=== PATIENT | female | born 1945 | race Caucasian/White ===

== ENCOUNTER 2024-11-29 17:38 | Emergency (ER) | payer MEDICARE, SELFPAY ==
[2024-11-29 17:38] VITALS: BMI 23.9
[2024-11-29 17:40] VITALS: BP 148/80
[2024-11-29 18:06] VITALS: BP 124/109
[2024-11-29 18:19] LABS: COVID-19 Antigen Negative (Negative)
[2024-11-29] MEDS: ZOFRAN 4 MG IV (18:49)
[2024-11-29] MEDS: NSS 1000 IV (18:49)
[2024-11-29 18:50] LABS: % Basophils 1.5 % (0-2); % Eosinophils 1.6 % (0-6); % Immature Granulocytes 0.3 % (0-0.5); % Lymphocytes 29.3 % (20.5-51.1); % Monocytes 9.8 % (1.7-9.3); % Neutrophils 57.5 % (42.2-75.2); Absolute Basophils 0.1 10^3/uL (0-0.2); Absolute Eosinophils 0.1 10^3/uL (0-0.7); Absolute Lymphocytes 2.1 10^3/uL (1.2-3.4); Absolute Monocytes 0.7 10^3/uL (0.1-0.6); Absolute Neutrophils 4.2 10^3/uL (1.4-6.5); Mean Corp Hgb Conc. 34.1 g/dL (33.0-37.0); Mean Corpuscular Volume 93.8 fL (81.0-99.0); Mean Platelet Volume 10.3 fL (7.4-10.4); Nucleated Red Blood Cells % 0 %; Platelet Count 286 10^3/uL (130-400); Red Blood Cell Count 4.69 10^6/uL (4.20-5.40); Red Cell Dist. Width 12.8 % (11.5-14.5); White Blood Cell Count 7.3 10^3/uL (4.8-10.8)
[2024-11-29 19:00] VITALS: BP 150/57
[2024-11-29 19:07] LABS: ALT (SGPT) 22 U/L (0-35); AST (SGOT) 35 U/L (14-36); Albumin 5.3 g/dl (3.5-5.0); Alkaline Phosphatase 77 U/L (38-126); Blood Urea Nitrogen 27 mg/dl (7-17); Calcium 9.2 mg/dl (8.4-10.2); Carbon Dioxide 17 mmol/L (22-30); Chloride 99 mmol/L (98-107); Estimated Creatinine Clearance 29 ml/min; Glucose 75 mg/dl (70-99); Sodium 132 mmol/L (135-145); Total Bilirubin 1.2 mg/dl (0.2-1.3); Total Protein 8.6 g/dl (6.3-8.2); eGFR 41.31
[2024-11-29 19:09] LABS: Lipase 165 U/L (23-300)
--- NOTE | 2024-11-29 19:45 | ED.GENMED ---
History of Present Illness
General
Chief Complaint: Abdominal Symptoms
Time Seen by Provider: 11/29/24 18:03
History of Present Illness
History of Present Illness:
79-year-old female with history of hypertension, chronic kidney disease, heart failure, chronic pain presenting to the emergency department for nausea, vomiting, diarrhea. Patient reports symptoms for the past 3 days. Reports chronic pain to the
left lower quadrant of the abdomen which she notes is from scar tissue. Denies any new pain to the abdomen. Does note that she has been having some left leg pain. Denies numbness or tingling to the leg. Pains above the knee. Denies any fever.
Denies known sick contacts. Does note that she was having some chest tightness. Denies difficulty breathing or cough. Denies additional acute medical complaints
Past History
Past History
ED Past Medical History: CHF, COPD, CVA, HTN, Hypercholesterolemia, Hypothyroidism, Other and Other
ED Past Surgical History: Appendectomy, Orthopedic and Tonsilectomy
Social History
Tobacco: Former smoker
Alcohol: None
Personal:
Living: with family
Employment: Retired
Family History
Family History: Other
Phy Exam
Physical Exam
Physical Exam:
General: Well-appearing, no clinical signs of dehydration, nontoxic and in no acute distress
HEENT: protecting airway
Neck: appears supple
CV: Normal heart rate, regular rhythm
Resp: No accessory muscle use, no increased work of breathing, lungs clear to auscultation bilaterally
Abd: No distention. Generalized tenderness to left lower quadrant without rebound or guarding.
Extremities: No deformities, no swelling, no erythema. Tenderness to the patellofemoral tendon of the left leg without swelling or erythema.
Neuro: alert, no focal neurologic deficit
: deferred
Rectal: deferred
Psych: Normal affect
Skin: Intact
Course
Orders/Labs/Results
Orders:
Orders
11/29/24 17:55
COVID-19 Antigen Urgent
Source: Nasal Swab
Influenza A+B Rapid Molecular Urgent
BERE Source: Nasal Swab
Specimen Description:
11/29/24 18:29
0.9% Sodium Chloride 1000 ml [Nss] 1,000 ml IV BOLUS
Ondansetron Injectable [Zofran] 4 mg IV NOW STA
11/29/24 18:31
Complete Blood Count/With Diff Urgent
Comprehensive Metabolic Panel Urgent
Lactic Acid Urgent
Lipase Urgent
11/29/24 19:13
Electrocardiogram (*1) Urgent
Reason for Study: Chest Pain
11/29/24 19:14
EKG- Treatment ONCE
11/29/24 19:21
CT Abd/pelvis W Iv Cont Urgent
Comment:
Reason For Exam: generalized pain, N/V/D
Abnormal Lab Results
11/29/24
18:31
MCH 32.0 H pg
(27.0-31.0)
Absolute Monos (auto) 0.7 H 10^3/uL
(0.1-0.6)
Monocytes % 9.8 H %
(1.7-9.3)
Sodium 132 L mmol/L
(135-145)
Carbon Dioxide 17 L mmol/L
(22-30)
BUN 27 H mg/dl
(7-17)
Creatinine 1.3 H mg/dL
(0.6-1.0)
Total Protein 8.6 H g/dl
(6.3-8.2)
Albumin 5.3 H g/dl
(3.5-5.0)
11/29/24 18:31
11/29/24 18:31
Vital Signs
Initial and Last Documented VS:
Initial Vital Signs
Pulse Resp BP Pulse Ox
83 18 148/80 100
11/29/24 17:40 11/29/24 17:40 11/29/24 17:40 11/29/24 17:40
Last Documented Vital Signs
Temp Pulse Resp BP Pulse Ox
98.2 F 83 15 149/109 97
11/29/24 19:28 11/29/24 20:00 11/29/24 20:00 11/29/24 20:00 11/29/24 20:00
MDM/Problems Addressed
MDM/Problems Addressed:
79-year-old female with history of heart failure, CKD, hypertension presenting for nausea, vomiting, diarrhea. Vital signs on arrival significant for low temperature, however on recheck, normal.
On exam patient is in no acute distress or discomfort. She does appear anxious. Symptoms here was consistent with viral gastroenteritis, possible norovirus. Patient does have generalized tenderness in the left side of the abdomen which she
reports as chronic. Unclear etiology of her chronic pain in that region. Given GI symptoms with pain, plan for laboratory analysis and CT imaging. Will treat with Zofran and IV fluids and reassess for improvement. Patient reports pain
additionally to the left leg with concern for a blood clot. No swelling or redness, no warmth. No asymmetry to the legs. Patient's pain is cool to the patellofemoral tendon with suspicion for patellofemoral tendon syndrome. Patient had also
noted some chest tightness. EKG is nonischemic without concern for ACS at this time.
19:00 - Patient's labs show elevation of creatinine, however appears improved from prior, no instability. No leukocytosis. Patient reports some improvement after fluids and Zofran given pending CT imaging.
20:10 - CT shows gastritis, otherwise no acute process. Continue suspect viral enteritis versus gastroenteritis. Patient remains hemodynamically stable. Feel stable for discharge with continued outpatient supportive therapy. Return precautions
distress patient verbalized understanding.
*EKG
Interpreted by ED Provider?: Yes
EKG Intrepretation Date: 11/29/24
EKG Intrepretation Time: 20:23
Interpretation: normal
Heart Rate: 79
Rate: normal
Rhythm: sinus
Ogema: left axis deviation
Interval: normal interval
QRS Pattern: normal QRS
Ischemia: no ischemia
*Critical Care Note
Total Time (30-74mins, 75-104mins- exclusive of procedures): Not Applicable
ED Attending Note
-
Portions of this chart may have been created with voice recognition software.� Occasional wrong word or��sound alike� substitutions may have occurred due to the inherent limitations of voice recognition software.
Discharge Plan
Departure
Patient Disposition: Home (Routine Discharge)
Date of Disposition: 11/29/24
Time of Disposition: 20:16
Patient with high blood pressure during this ER visit?: No
Condition: Good
Discharge Problem:
Gastroenteritis
Instructions: Viral gastroenteritis in adults
Prescriptions:
New
ondansetron 4 mg Tablet,Disintegrating
4 mg PO TIDPRN PRN (Reason: nausea/vomiting) Qty: 6 0RF
No Action
omeprazole 20 MG capsule,delayed release(DR/EC)
20 mg PO DAILY
folic acid 1 MG tablet
1 mg PO BID
Prempro 0.45/1.5
1 tab PO DAILY
Patient Comments:
08/10/18 per patient she is trying to ween off;
10/01/18 faxed patient med list has med but not frequency
metoprolol succinate 12.5 MG tablet extended release 24 hr
12.5 mg PO BID
pregabalin 100 MG capsule
200 mg PO QPM
aspirin 81 MG tablet,delayed release (DR/EC)
81 mg PO DAILY
levothyroxine 50 MCG tablet
50 mcg PO DAILY
rosuvastatin 20 MG tablet
20 mg PO HS
nitroglycerin 0.4 MG tablet, sublingual
0.4 mg sublingual [id number] PRN (Reason: chest pain') 0RF
naloxegol [Movantik] 25 MG tablet
25 mg PO DAILY
polyethylene glycol 3350 17 GRAMS powder in packet
17 grams PO DAILYPRN PRN (Reason: constipation)
sennosides-docusate sodium 1 TABLET tablet
1 tab PO BID
bisacodyl [OneLAX Bisacodyl] 10 MG suppository
10 mg MS DAILYPRN PRN (Reason: if MOM ineffective)
fluoxetine 20 MG capsule
20 mg PO BID
fluconazole 100 MG tablet
100 mg PO DAILY 0RF
Rx Instructions:
for 7 more days
acetaminophen 325 MG tablet
650 mg PO Q4HPRN PRN (Reason: mild pain/temp >100.4F) 0RF
ipratropium-albuterol 3 ML solution for nebulization
3 ml inhalation R Q4HPRN PRN (Reason: SOB) 0RF
midodrine 5 MG tablet
5 mg PO DAILY 0RF
oxycodone 15 MG tablet
15 mg PO Q8HPRN PRN (Reason: severe pain) Qty: 15 0RF
Referrals:
UNKNOWN - PT DOES,NOT KNOW [Family Provider] -
Activity Restrictions/Additional Instructions:
You were seen in the emergency department for nausea, vomiting, diarrhea
You were found to have normal blood work and CT imaging of your abdomen. There was some inflammation to your stomach which may indicate gastritis versus a gastroenteritis. Please continue to drink fluids as tolerated.
Please follow-up closely with your primary care physician.
Return to the emergency department for any worsening of your symptoms, or any development of chest pain, difficulty breathing, abdominal pain with persistent vomiting and inability to tolerate food or liquid by mouth (concern for dehydration),
weakness, headache or confusion, fever greater than 100.4, or any additional symptoms that are concerning to you.
Thank you for choosing [facility].
Interventions
Interventions:
*Risk Screen - Suicide Last Done: 11/29/24 17:40
*General Assessment Last Done: 11/29/24 17:40
*Neglect/Abuse Screening Last Done: 11/29/24 17:40
ED- Fall Risk Assessment Last Done: 11/29/24 19:05
*ED COVID-19 Vaccine History Last Done: 11/29/24 17:40
XN-Uqoksq-Cyqgewgwom Assessment Last Done: 11/29/24 19:05
Discharge Date and Time
Print Language: YORUBA
[2024-11-29 20:00] VITALS: BP 149/109
== END 2024-11-29 20:41 | disposition home or self-care (01) ==
LOC: EMR 17:38
PROVIDERS: EMERGENCY PHYSICIAN Student in an Organized Health Care Education/Training Program
DX: K52.9 Noninfective gastroenteritis and colitis, unspecified (principal); I13.0 Hypertensive heart and chronic kidney disease with heart failure and stage 1 through stage 4 chronic kidney disease, or unspecified chronic kidney disease; I50.9 Heart failure, unspecified; N18.9 Chronic kidney disease, unspecified; E03.9 Hypothyroidism, unspecified; E78.00 Pure hypercholesterolemia, unspecified; J44.9 Chronic obstructive pulmonary disease, unspecified; Z87.891 Personal history of nicotine dependence; Z90.49 Acquired absence of other specified parts of digestive tract
CPT/HCPCS: 96374; 96361; 99284; 74177; 80053; 83605; 83690; 85025; 87502; 87811; 93005; Q9967

== ENCOUNTER 2025-02-08 22:23 | Emergency (ER) | payer OTHER, SELFPAY ==
[2025-02-08 22:27] VITALS: BP 179/79
[2025-02-08 22:55] LABS: PT 13.7 Sec (11.4-14.6)
[2025-02-08 23:04] LABS: ALT (SGPT) 13 U/L (0-35); AST (SGOT) 26 U/L (14-36); Albumin 4.1 g/dl (3.5-5.0); Alkaline Phosphatase 60 U/L (38-126); Blood Urea Nitrogen 14 mg/dl (7-17); Calcium 9.3 mg/dl (8.4-10.2); Carbon Dioxide 28 mmol/L (22-30); Chloride 104 mmol/L (98-107); Glucose 94 mg/dl (70-99); Potassium 3.8 mmol/L (3.5-5.1); Sodium 141 mmol/L (135-145); Total Bilirubin 0.6 mg/dl (0.2-1.3); Total Protein 7.3 g/dl (6.3-8.2); eGFR 45.48
[2025-02-08 23:09] LABS: % Basophils 1.1 % (0-2); % Eosinophils 4.6 % (0-6); % Immature Granulocytes 0.1 % (0-0.5); % Lymphocytes 43.3 % (20.5-51.1); % Neutrophils 39.9 % (42.2-75.2); Absolute Basophils 0.1 10^3/uL (0-0.2); Absolute Eosinophils 0.3 10^3/uL (0-0.7); Absolute Lymphocytes 3.2 10^3/uL (1.2-3.4); Absolute Monocytes 0.8 10^3/uL (0.1-0.6); Hematocrit 39.8 % (37.0-47.0); Hemoglobin 13.5 g/dL (12.0-16.0); Mean Corp Hgb Conc. 33.9 g/dL (33.0-37.0); Mean Corpuscular Hgb 32.7 pg (27.0-31.0); Mean Corpuscular Volume 96.4 fL (81.0-99.0); Mean Platelet Volume 10.2 fL (7.4-10.4); Nucleated Red Blood Cells % 0 %; Platelet Count 212 10^3/uL (130-400); Red Blood Cell Count 4.13 10^6/uL (4.20-5.40); Red Cell Dist. Width 13.5 % (11.5-14.5); White Blood Cell Count 7.4 10^3/uL (4.8-10.8)
[2025-02-08 23:12] LABS: Troponin I < 0.012 ng/ml
[2025-02-09 01:19] VITALS: BP 171/62
[2025-02-09 01:20] VITALS: BMI 25.0
--- NOTE | 2025-02-09 01:42 | ED.GENMED ---
History of Present Illness
General
Chief Complaint: Extremity Pain (non-traumatic)
Source: patient
Exam Limitations: none
Time Seen by Provider: 02/09/25 01:01
Nursing documentation reviewed up to this point in time: agreed with
History of Present Illness
History of Present Illness:
79-year-old female past medical history of stroke, CHF hypertension presenting to the emergency department today with concerns of left lower extremity discomfort over the past month or so. Here to rule out DVT. Denies any chest pain shortness of
breath or additional concerns otherwise. No fever redness or warmth.
Past History
Past History
ED Past Medical History: CHF, COPD, CVA, HTN, Hypercholesterolemia, Hypothyroidism, Other and Other
ED Past Surgical History: Appendectomy, Orthopedic and Tonsilectomy
Social History
Tobacco: Former smoker
Alcohol: None
Personal:
Living: with family
Employment: Retired
Family History
Family History: Other
Review of Systems
Review of Systems
Allergies reviewed?: Yes
All Other Systems: ROS reviewed and negative except as documented in HPI and ROS
Phy Exam
Physical Exam
Physical Exam:
GENERAL: Alert , in no apparent distress
EYE: pupils equal and reactive
NECK: Supple, no significant adenopathy.
ENT: o/p clr, mmm.
CARDIAC: Regular rate and rhythm .
LUNGS: Clear breath sounds bilaterally, no acute respiratory distress, no wheezes/rales/rhonchi
ABDOMEN: Soft, without focal tenderness, no r/g, no cvat
NEUROLOGICAL: Alert and oriented, no focal neuro deficits
SKIN: Warm and dry, skin intact.
MUSCULOSKELETAL: 1 no edema, well perfused.
PSYCH: Normal and appropriate interaction.
No overlying redness or warmth good range of motion of all joints of the lower extremities bilaterally
Course
Orders/Labs/Results
Orders:
Orders
02/08/25 22:30
Electrocardiogram (*1) Urgent
Reason for Study: Chest Pain
EKG- Treatment ONCE
US Periph Venous LOWER Ext LT Urgent
Comment:
Reason For Exam: LLE pain/swelling x 1 month
02/08/25 22:32
Complete Blood Count/With Diff Urgent
Comprehensive Metabolic Panel Urgent
Prothrombin Time Urgent
Troponin I Urgent
02/09/25 01:39
Oxycodone [Roxicodone] 15 mg PO NOW STA
Abnormal Lab Results
02/08/25
22:32
RBC 4.13 L 10^6/uL
(4.20-5.40)
MCH 32.7 H pg
(27.0-31.0)
Absolute Monos (auto) 0.8 H 10^3/uL
(0.1-0.6)
Neutrophils % 39.9 L %
(42.2-75.2)
Monocytes % 11.0 H %
(1.7-9.3)
Creatinine 1.2 H mg/dL
(0.6-1.0)
02/08/25 22:32
02/08/25 22:32
Vital Signs
Initial and Last Documented VS:
Initial Vital Signs
Temp Pulse Resp BP Pulse Ox
98.5 F 69 16 179/79 99
02/08/25 22:27 02/08/25 22:27 02/08/25 22:27 02/08/25 22:27 02/08/25 22:27
Last Documented Vital Signs
Temp Pulse Resp BP Pulse Ox
98.5 F 66 11 171/62 97
02/08/25 22:27 02/09/25 01:19 02/09/25 01:19 02/09/25 01:19 02/09/25 01:20
MDM/Problems Addressed
MDM/Problems Addressed:
79-year-old female presenting to the emergency department today with concerns of left-sided thigh discomfort over the past month made worse with some ambulation and movement. Minimal overlying swelling not appreciated on my examination no redness
or warmth. No fevers no systemic symptoms labs unremarkable ultrasound without evidence of DVT. Patient would likely strain or sprain to the area advised for orthopedic follow-up otherwise stable for discharge. Return precautions given.
*Critical Care Note
Total Time (30-74mins, 75-104mins- exclusive of procedures): Not Applicable
ED Attending Note
-
Portions of this chart may have been created with voice recognition software.� Occasional wrong word or��sound alike� substitutions may have occurred due to the inherent limitations of voice recognition software.
Discharge Plan
Departure
Patient Disposition: Home (Routine Discharge)
Date of Disposition: 02/09/25
Time of Disposition: 01:43
Patient with high blood pressure during this ER visit?: No
Condition: Good
Covid-19: Not Applicable
Discharge Problem:
Leg pain
Instructions: Muscle and Bone Pain (DC)
Prescriptions:
No Action
omeprazole 20 MG capsule,delayed release(DR/EC)
20 mg PO DAILY
folic acid 1 MG tablet
1 mg PO BID
Prempro 0.45/1.5
1 tab PO DAILY
Patient Comments:
08/10/18 per patient she is trying to ween off;
10/01/18 faxed patient med list has med but not frequency
metoprolol succinate 12.5 MG tablet extended release 24 hr
12.5 mg PO BID
pregabalin 100 MG capsule
200 mg PO QPM
aspirin 81 MG tablet,delayed release (DR/EC)
81 mg PO DAILY
levothyroxine 50 MCG tablet
50 mcg PO DAILY
rosuvastatin 20 MG tablet
20 mg PO HS
nitroglycerin 0.4 MG tablet, sublingual
0.4 mg sublingual [id number] PRN (Reason: chest pain') 0RF
naloxegol [Movantik] 25 MG tablet
25 mg PO DAILY
polyethylene glycol 3350 17 GRAMS powder in packet
17 grams PO DAILYPRN PRN (Reason: constipation)
sennosides-docusate sodium 1 TABLET tablet
1 tab PO BID
bisacodyl [OneLAX Bisacodyl] 10 MG suppository
10 mg MT DAILYPRN PRN (Reason: if MOM ineffective)
fluoxetine 20 MG capsule
20 mg PO BID
fluconazole 100 MG tablet
100 mg PO DAILY 0RF
Rx Instructions:
for 7 more days
acetaminophen 325 MG tablet
650 mg PO Q4HPRN PRN (Reason: mild pain/temp >100.4F) 0RF
ipratropium-albuterol 3 ML solution for nebulization
3 ml inhalation R Q4HPRN PRN (Reason: SOB) 0RF
midodrine 5 MG tablet
5 mg PO DAILY 0RF
oxycodone 15 MG tablet
15 mg PO Q8HPRN PRN (Reason: severe pain) Qty: 15 0RF
ondansetron 4 mg Tablet,Disintegrating
4 mg PO TIDPRN PRN (Reason: nausea/vomiting) Qty: 6 0RF
Referrals:
Gamal Schilling MD [Active] - Follow up in 5-7 days
UNKNOWN - PT DOES,NOT KNOW [Family Provider] -
Activity Restrictions/Additional Instructions:
You came to the emergency department today with concerns of thigh discomfort. Here you had an ultrasound without signs of a blood clot, labs unremarkable. Please follow closely with orthopedics. Return for any worsening, new or concerning
symptoms.
Interventions
Interventions:
*Risk Screen - Suicide Last Done: 02/08/25 22:27
*General Assessment Last Done: 02/09/25 01:20
*Neglect/Abuse Screening Last Done: 02/08/25 22:27
*ED- Fall Risk Assessment Last Done: 02/08/25 22:27
*ED COVID-19 Vaccine History Last Done: 02/09/25 01:20
ED-Skin Assessment Last Done: 02/09/25 01:20
ED-Peripheral Vascular Assessment Last Done: 02/09/25 01:20
ED-Musculoskeletal Assessment Last Done: 02/09/25 01:20
Discharge Date and Time
Print Language: LITHUANIAN
[2025-02-09] MEDS: ROXICODONE 15 MG PO (01:47)
== END 2025-02-09 01:58 | disposition home or self-care (01) ==
LOC: EMR 22:23
PROVIDERS: Emergency Medicine; EMERGENCY PHYSICIAN Emergency Medicine
DX: M79.606 Pain in leg, unspecified (principal); I11.0 Hypertensive heart disease with heart failure; I50.9 Heart failure, unspecified; E03.9 Hypothyroidism, unspecified; E78.00 Pure hypercholesterolemia, unspecified; J44.9 Chronic obstructive pulmonary disease, unspecified; Z86.73 Personal history of transient ischemic attack (TIA), and cerebral infarction without residual deficits; Z87.891 Personal history of nicotine dependence; Z90.49 Acquired absence of other specified parts of digestive tract
CPT/HCPCS: 99284; 80053; 84484; 85025; 85610; 93005; 93971

== ENCOUNTER → 2025-07-27 11:06 | Outpatient (REF) | payer OTHER, SELFPAY | LOC: HWRCS 11:06 | PROVIDERS: ATTENDING PHYSICIAN Nuclear Medicine Nuclear Cardiology | DX: I25.10 Atherosclerotic heart disease of native coronary artery without angina pectoris (principal); I50.32 Chronic diastolic (congestive) heart failure; R06.09 Other forms of dyspnea | CPT/HCPCS: 93306 ==

== ENCOUNTER 2025-10-18 07:48 | Emergency (ER) | payer OTHER, SELFPAY ==
[2025-10-18 07:50] VITALS: BP 156/73
--- NOTE | 2025-10-18 10:28 | ED.GENMED ---
History of Present Illness
General
Chief Complaint: Skin Problem
Time Seen by Provider: 10/18/25 10:18
History of Present Illness
History of Present Illness:
80-year-old female with prior stroke presents to the emergency department for evaluation of an itchy rash to the groin extending to the right leg. She is concerned for shingles. Denies any pain to the area. Using Benadryl orally with some symptom
improvement. Denies fevers or chills
Past History
Past History
ED Past Medical History: CHF, COPD, CVA, HTN, Hypercholesterolemia, Hypothyroidism, Other and Other
ED Past Surgical History: Appendectomy, Orthopedic and Tonsilectomy
Social History
Tobacco: Former smoker
Alcohol: None
Personal:
Living: with family
Employment: Retired
Family History
Family History: Other
Review of Systems
Review of Systems
Allergies reviewed?: Yes
All Other Systems: ROS reviewed and negative except as documented in HPI and ROS
Phy Exam
Physical Exam
Physical Exam:
GEN: Well appearing, NAD, WDWN
HEENT: Oral mucosa moist, no scleral icterus
Cardiac: Regular rate
Lung: No respiratory distress, no tachypnea
: Erythematous patches to bilateral inguinal intertriginous regions extending to the external labia bilat with satellite papules, no vesicular lesions or tenderness to palpation, no inguinal lymphadenopathy
MSK: No gross deformity or injuries
Skin: Good color, no pallor or jaundice, no rashes
Neuro: AO x3, moves all extremities freely
Psych: Calm, cooperative
Course
Vital Signs
Initial and Last Documented VS:
Initial Vital Signs
Temp Pulse Resp BP Pulse Ox
97.9 F 62 18 156/73 97
10/18/25 07:50 10/18/25 07:50 10/18/25 07:50 10/18/25 07:50 10/18/25 07:50
Last Documented Vital Signs
Temp Pulse Resp BP Pulse Ox
97.9 F 62 18 156/73 97
10/18/25 07:50 10/18/25 07:50 10/18/25 07:50 10/18/25 07:50 10/18/25 10:30
MDM/Problems Addressed
MDM/Problems Addressed:
Skin lesions consistent with candidal dermatitis, will treat with topical antifungals
*Pulse Oximetry
SaO2: 97
Oxygen Mode of Delivery: Room air
Patient hypoxic: no
*Critical Care Note
Total Time (30-74mins, 75-104mins- exclusive of procedures): Not Applicable
ED Attending Note
-
Portions of this chart may have been created with voice recognition software.� Occasional wrong word or��sound alike� substitutions may have occurred due to the inherent limitations of voice recognition software.
Discharge Plan
Departure
Patient Disposition: Home (Routine Discharge)
Date of Disposition: 10/18/25
Time of Disposition: 10:30
Patient with high blood pressure during this ER visit?: No
Discharge Problem:
Candidal intertrigo
Instructions: Fungal skin rash - ED (DC)
Prescriptions:
New
ketoconazole 2 % cream
1 applic topical BID 14 Days Qty: 60 0RF
No Action
omeprazole 20 MG capsule,delayed release(DR/EC)
20 mg PO DAILY
folic acid 1 MG tablet
1 mg PO BID
Prempro 0.45/1.5
1 tab PO DAILY
Patient Comments:
08/10/18 per patient she is trying to ween off;
10/01/18 faxed patient med list has med but not frequency
metoprolol succinate 12.5 MG tablet extended release 24 hr
12.5 mg PO BID
pregabalin 100 MG capsule
200 mg PO QPM
aspirin 81 MG tablet,delayed release (DR/EC)
81 mg PO DAILY
levothyroxine 50 MCG tablet
50 mcg PO DAILY
rosuvastatin 20 MG tablet
20 mg PO HS
nitroglycerin 0.4 MG tablet, sublingual
0.4 mg sublingual [id number] PRN (Reason: chest pain') 0RF
naloxegol [Movantik] 25 MG tablet
25 mg PO DAILY
polyethylene glycol 3350 17 GRAMS powder in packet
17 grams PO DAILYPRN PRN (Reason: constipation)
sennosides-docusate sodium 1 TABLET tablet
1 tab PO BID
bisacodyl [OneLAX Bisacodyl] 10 MG suppository
10 mg ND DAILYPRN PRN (Reason: if MOM ineffective)
fluoxetine 20 MG capsule
20 mg PO BID
fluconazole 100 MG tablet
100 mg PO DAILY 0RF
Rx Instructions:
for 7 more days
acetaminophen 325 MG tablet
650 mg PO Q4HPRN PRN (Reason: mild pain/temp >100.4F) 0RF
ipratropium-albuterol 3 ML solution for nebulization
3 ml inhalation R Q4HPRN PRN (Reason: SOB) 0RF
midodrine 5 MG tablet
5 mg PO DAILY 0RF
oxycodone 15 MG tablet
15 mg PO Q8HPRN PRN (Reason: severe pain) Qty: 15 0RF
ondansetron 4 mg Tablet,Disintegrating
4 mg PO TIDPRN PRN (Reason: nausea/vomiting) Qty: 6 0RF
Interventions
Interventions:
*General Assessment Last Done: 10/18/25 10:43
*Neglect/Abuse Screening Last Done: 10/18/25 07:50
*ED COVID-19 Vaccine History Last Done: 10/18/25 10:43
*ED Influenza Vaccine History Last Done: 10/18/25 10:43
[facility] Fall Risk Assessment Tool Last Done: 10/18/25 10:43
*Risk Screen - Suicide (C-SSRS) Last Done: 10/18/25 07:50
*Nursing Disposition Last Done: 10/18/25 10:50
ED-Skin Assessment Last Done: 10/18/25 10:50
Discharge Date and Time
Discharge Date/Time: 10/18/25 10:50
Print Language: SENEGALESE
[2025-10-18 10:43] VITALS: BMI 22.8
--- NOTE | 2025-10-18 10:47 | EDRN ---
Pt getting dressed and calling for her ride at this time. Will get a w/c to take pt out to triage [facility].
== END 2025-10-18 10:50 | disposition home or self-care (01) ==
LOC: EMR 07:48
PROVIDERS: EMERGENCY PHYSICIAN Emergency Medicine
DX: B37.2 Candidiasis of skin and nail (principal); I11.0 Hypertensive heart disease with heart failure; I50.9 Heart failure, unspecified; E78.00 Pure hypercholesterolemia, unspecified; J44.9 Chronic obstructive pulmonary disease, unspecified; E03.9 Hypothyroidism, unspecified; Z79.82 Long term (current) use of aspirin; Z86.73 Personal history of transient ischemic attack (TIA), and cerebral infarction without residual deficits; Z87.891 Personal history of nicotine dependence
CPT/HCPCS: 99282